=== PATIENT | male | born 1975 | race Caucasian/White ===

== ENCOUNTER 2020-11-10 13:55 | Outpatient (CLI) | payer BC | END 2020-11-10 13:56 | disposition home or self-care (01) | LOC: TBSIIMAG 13:55 | PROVIDERS: ATTEND Psychiatry & Neurology Neurology | DX: M47.26 Other spondylosis with radiculopathy, lumbar region (principal) | CPT/HCPCS: 72148 ==

== ENCOUNTER 2021-02-28 08:13 | Outpatient (CLI) | payer BC | END 2021-02-28 08:14 | disposition home or self-care (01) | LOC: TBSIIMAG 08:13 | PROVIDERS: ATTEND Psychiatry & Neurology Neurology | DX: M47.26 Other spondylosis with radiculopathy, lumbar region (principal); M47.27 Other spondylosis with radiculopathy, lumbosacral region | CPT/HCPCS: 72148 ==